=== PATIENT | female | born 1980 | race Caucasian/White ===

== ENCOUNTER 2016-11-11 10:35 | Emergency (ER) | payer OTHER ==
[2016-11-11 10:39] VITALS: BP 122/68; PULSE 88; TEMP 98.6; BMI 29.9
--- NOTE | 2016-11-11 12:19 | PDOC ---
History of Present Illness - General Chief Complaint: Sore Throat Stated Complaint: 26WKS , STREP THROAT Time Seen by Provider: 11/11/16 11:45 History Source: Patient Exam Limitations: No Limitations - History of Present Illness Initial Comments: 11/11/16 12:19 35 yr female with sore throat this am. Pt states her children had strep last week. Pt is 7 months no medical history or allergies. Past History - Past Medical History Allergies/Adverse Reactions: Allergies Allergy/AdvReac Type Severity Reaction Status Date / Time No Known Allergies Allergy Verified 11/11/16 10:36 Home Medications: Ambulatory Orders NK [No Known Home Medication] 11/11/16 Asthma: No Cancer: No Cardiac Disorders: No Diabetes: No HTN: No Seizures: No Thyroid Disease: No - Family Disease History Comment:: 11/11/16 12:20 none - Psycho/Social/Smoking Cessation Hx Anxiety: No Suicidal Ideation: No Smoking Status: No Smoking History: Never smoked Have you smoked in the past 12 months: No Number of Cigarettes Smoked Daily: 0 Information on smoking cessation initiated: No Hx Alcohol Use: No Drug/Substance Use Hx: No Substance Use Type: None Hx Substance Use Treatment: No Review of Systems - Review of Systems Able to Perform ROS?: Yes Is the patient limited Chinese proficient: No Constitutional: No: Symptoms Reported HEENTM: Yes: See HPI Respiratory: No: Symptoms reported Cardiac (ROS): No: Symptoms Reported ABD/GI: No: Symptoms Reported : No: Symptoms Reported Musculoskeletal: No: Symptoms Reported Integumentary: No: Symptoms Reported Neurological: No: Symptoms reported *Physical Exam - Vital Signs Last Vital Signs Temp Pulse Resp BP Pulse Ox 98.6 F 88 18 122/68 100 11/11/16 10:37 11/11/16 10:37 11/11/16 10:37 11/11/16 10:37 11/11/16 10:37 - Physical Exam General Appearance: Yes: Nourished, Appropriately Dressed HEENT: positive: EOMI, BRANDO, TMs Normal, Pharynx Normal Neck: positive: Supple Respiratory/Chest: positive: Lungs Clear, Normal Breath Sounds Cardiovascular: positive: Regular Rhythm, Regular Rate Gastrointestinal/Abdominal: positive: Normal Bowel Sounds, Soft Musculoskeletal: positive: Normal Inspection Extremity: positive: Normal Capillary Refill, Normal Inspection, Normal Range of Motion Integumentary: positive: Normal Color, Dry, Warm Neurologic: positive: Fully Oriented, Alert, Normal Mood/Affect, Normal Response , Motor Strength /5 Medical Decision Making - Medical Decision Making 11/11/16 12:20 cc: sore throat afebrile no diff swallowing will check for strep *DC/Admit/Observation/Transfer Diagnosis at time of Disposition: Pharyngitis Qualifiers: Pharyngitis/tonsillitis etiology: unspecified etiology Qualified Code(s): J02.9 - Acute pharyngitis, unspecified - Discharge Dispostion Disposition: HOME Condition at time of disposition: Good - Patient Instructions Additional Instructions: negative for strep throat on the rapid swab gargle with warm salt water 4-5 times a day throat lozengers lemon drops drink pleanty of fluids tylenol for pain as needed follow with ENT if any symptoms worsen or persist
== END 2016-11-11 13:44 | disposition home or self-care (01) ==
LOC: JERFT 10:35
DX: J02.9 Acute pharyngitis, unspecified (principal); Z3A.26 26 weeks gestation of pregnancy
CPT/HCPCS: 87070; 87430; 99281-25

== ENCOUNTER 2017-02-04 01:32 | Inpatient (IN) | payer OTHER ==
[2017-02-04] MEDS ORDERED: DEXTROSE 5%-LACTATED RINGERS 1,000 ML IV SCH (02:20)
[2017-02-04] MEDS ORDERED: AMPICILLIN 2 GM/100 ML BAG (PRE-DOCKED) IVPB ONE (02:20)
[2017-02-04 02:28] LABS: MCH 27.7 pg (25.7-33.7); MCHC 32.9 g/dl (32.0-36.0); MEAN CELL VOLUME 84.2 fl (80-96); RDW 14.6 % (11.6-15.6); WHITE BLOOD COUNT 8.4 K/mm3 (4.0-10.0)
[2017-02-04 02:45] VITALS: BMI 31.5
[2017-02-04 02:50] LABS: INR 0.96 (0.82-1.09); PROTHROMBIN TIME (PATIENT) 10.6 SEC (9.98-11.88)
[2017-02-04 02:53] LABS: ACTIVATED PTT 26.6 SECONDS (26.9-34.4)
[2017-02-04 02:56] LABS: CALCIUM 9.4 mg/dL (8.5-10.1); COCKROFT - GAULT 121.72; CREATININE 0.7 mg/dL (0.55-1.02)
[2017-02-04 03:24] LABS: HIV 1 & 2 AB NEGATIVE; HIV 1 AGp24 NEGATIVE
[2017-02-04] MEDS: AMPICILLIN (PRE-DOCKED) 1 GM/100 ML BAG IVPB SCH ×3 (06:20→14:20)
--- NOTE | 2017-02-04 06:47 | HP ---
Past Medical History - Primary Care Physician PCP:: Lencho London - Admission Chief Complaint: 36 yo @ 38.2wks with contructions, no VB, no LOF, +FM History of Present Illness: 1. GBS+ - for Ampicillin prophylaxis History Source: Patient Limitations to Obtaining History: No Limitations - Past Medical History ...: 5 ...Para: 4 ...Term: 4 ...: 0 ...Spon : 0 ...Induced : 0 ...Multiple Gestation: 0 ...LMP: 05/12/16 ... Weeks Gestation by Dates: 38.2 ...EDC by Dates: 02/16/17 ...EDC by Sono: 02/19/17 - Past Surgical History Past Surgical History: Yes: None Hx Myomectomy: No Hx Transabdominal Cerclage: No - Smoking History Smoking history: Never smoked Have you smoked in the past 12 months: No Aproximately how many cigarettes per day: 0 - Alcohol/Substance Use Hx Alcohol Use: No History of Substance Use: reports: None - Social History History of Recent Travel: No Home Medications - Allergies Allergies/Adverse Reactions: Allergies Allergy/AdvReac Type Severity Reaction Status Date / Time No Known Allergies Allergy Verified 02/04/17 02:50 - Home Medications Home Medications: Ambulatory Orders [id number]/Iron Fumarate/FA/Dss [ 19 Tablet] 1 each PO DAILY 02/04/17 Review of Systems - Review of Systems Constitutional: reports: No Symptoms Eyes: reports: No Symptoms HENT: reports: No Symptoms Neck: reports: No Symptoms Cardiovascular: reports: No Symptoms Respiratory: reports: No Symptoms Gastrointestinal: reports: No Symptoms Genitourinary: reports: No Symptoms Breasts: reports: No Symptoms Reported Musculoskeletal: reports: No Symptoms Integumentary: reports: No Symptoms Neurological: reports: No Symptoms Endocrine: reports: No Symptoms Hematology/Lymphatic: reports: No Symptoms Psychiatric: reports: No Symptoms Physical Exam - Maternity Vital Signs: Vital Signs Temperature 98.0 F 02/04/17 05:00 Pulse Rate 69 02/04/17 06:00 Respiratory Rate 18 02/04/17 06:00 Blood Pressure 117/86 02/04/17 06:00 O2 Sat by Pulse Oximetry (%) Constitutional: Yes: Well Nourished Cardiovascular: Yes: WNL Lungs: Clear to auscultation Breast(s): Yes: WNL - Abdominal Exam/OB Fundal Height: 37 Number of Fetuses: Single Presentation: Vertex Contractions: Yes Regularity: Regular Intensity: Mild/Mod Monitor Mode: External Heart Rate Location: Midline Category: I Accelerations: Uniform Decelerations: None - Vaginal Exam/OB Vaginal Bleediing: Bloody Show Dilatation (cm): 5 Effacement (%): 50% Amniotic Membrane Status: Intact Presentation: Vertex/Position Station: -3 - Physical Exam Musculoskeletal: Yes: WNL Extremities: Yes: WNL Edema: No Integumentary: Yes: WNL Deep Tendon Reflex Grade: Normal +2 ...Motor Strength: WNL Psychiatric: Yes: WNL - Labs Lab Results: CBC, BMP 02/04/17 02:20 02/04/17 02:20 Assessment/Plan 36 yo P4 @ 38.2 wks in labor Admit to L&D Send Labs, IVF Desires Epidural for pain control MF status reasuring Will AROM after epidural for augmentation
[2017-02-04 07:15] LABS: PLATELET COMMENT2 NO CLOTTING DETECTED; PLATELET COMMENT3 UNABLE TO ENUMERATE; PLATELET ESTIMATE ADEQUATE (NORMAL)
[2017-02-04] MEDS ORDERED: TUBERCULIN PPD 5 TU/0.1ML SYRINGE (IN PATIENT USE ONLY) ID ONE (08:00)
[2017-02-04] MEDS ORDERED: FENTANYL/BUPIVACAINE/NS/PF - PCEA - 50 ML DISP.SYRIN EP SCH (08:15)
--- NOTE | 2017-02-04 12:27 | PN ---
Ante-Partal Exam - Subjective Subjective: Pt w/o complaints Vital Signs: Vital Signs Temperature 98.1 F 02/04/17 10:00 Pulse Rate 56 L 02/04/17 10:30 Respiratory Rate 20 02/04/17 10:30 Blood Pressure 135/76 02/04/17 10:30 O2 Sat by Pulse Oximetry (%) 100 02/04/17 10:30 Bleeding: No Headache: No Visual changes: No Right upper quadrant pain: No Pain (scale 1-10): 0 (Epidural) - Contractions Contractions: Yes Regularity: Regular Intensity: Mild/Mod Monitor Mode: External - Exam during Labor Heart Rate: 110 Variability: Moderate Heart Rate Location: Midline Category: I Monitor Accelerations: Present Monitor Decelerations: Variable (occasional) Exam: Vaginal Dilatation (cm): 6 Effacement (%): 70 Amniotic Membrane Status: Intact Presentation: Vertex Station: -4 - Intrapartum Hemorrhage Risk Medium Risk Factors: None High Risk Factors: None Risk Score: 0 Risk Level: Low Risk - Assessment/Plan Assessment/Plan: 28 yo P4 with spont active labor. FHT with change in baseline but o/w Category I No cervical dilation, c/w arrest of dilation head is very high to AROM now. Contx's are not regular. Plan to augment with pitocin.
[2017-02-04 12:42] LABS: BASOPHIL 0.7 % (0-2.0); EOSINOPHIL 0.5 % (0-4.5); MCHC 33.3 g/dl (32.0-36.0); MEAN CELL VOLUME 84.1 fl (80-96); MEAN PLT VOLUME 11.3 fl (7.5-11.1); RDW 14.8 % (11.6-15.6); WHITE BLOOD COUNT 8.9 K/mm3 (4.0-10.0)
[2017-02-04] MEDS ORDERED: WITCH HAZEL 50% (TUCKS) 40 PAD/JAR PAD TP PRN (16:07)
[2017-02-04] MEDS ORDERED: BISACODYL 10 MG SUPP.RECT RC PRN (16:07)
[2017-02-04] MEDS ORDERED: METHYLERGONOVINE MALEATE 0.2 MG/1 ML AMP IM PRN (16:07)
[2017-02-04] MEDS ORDERED: BENZOCAINE 28 GM HEMORRHOIDAL OINTMENT TP PRN (16:07)
[2017-02-04] MEDS ORDERED: BENZOCAINE 20% 57 GM BOTTLE TP PRN (16:07)
[2017-02-04] MEDS ORDERED: D5W-LR W/ 20 UNITS OXYTOCIN 1,000 ML IV SCH (16:15)
[2017-02-04 16:18] LABS: ARTERIAL BLD GAS O2 SATURATION 82.6 % (90-98.9); ARTERIAL BLOOD GAS BASE EXCESS -3.8 meq/l (-2-2); ARTERIAL BLOOD GAS HCO3 19.9 meq/L (22-26); ARTERIAL BLOOD GAS pH 7.38 (7.35-7.45); LPM/O2% 6L; PT. ON O2? YES
[2017-02-04 16:19] LABS: ARTERIAL BLOOD GAS PO2 42.6 mmHg (80-100); TYPE OF O2 FACE MASK
[2017-02-04 17:23] LABS: PLATELET COMMENT2 NO CLUMPING NOTED; PLATELET COMMENT3 NO CLOTTING DETECTED; PLATELET COUNT 113 K/MM3 (134-434); PLATELET ESTIMATE DECREASED (NORMAL)
[2017-02-04] MEDS: ACETAMINOPHEN 325 MG TABLET (FP) PO PRN ×2 (17:47→20:49)
--- NOTE | 2017-02-04 18:14 | PN ---
Delivery - Delivery Vaginal Delivery: No Problems, Spontaneous Type of Anesthesia: Epidural Episiotomy/Laceration: None EBL (cc): 300 Delivery, Single - Stages of Labor Date 1st Stage Initiatied: 02/04/17 Time 1st Stage Initiated: 02:00 Date 2nd Stage Initiated: 02/04/17 Time 2nd Stage Initiated: 15:30 Date of Delivery: 02/04/17 Time of Delivery: 15:47 Date Placenta Delivered: 02/04/17 Time Placenta Delivered: 16:00 Placenta: Yes: Spontaneous, Normal Configuration - Condition of Infant Structural Engineering Drafting Officer/Lineman Apprentice Present: Yes Name: Imani Brandon Infant Gender: Female Weight: 3.175 kg Position: Left, OA Total Hours ROM (Hrs/Mins): 2hr 7min - 1 Minute Total Score: 9 5 Minutes Total Score: 9 - [place] Feeding Plan Initial Plan: Elected not to breastfeed exclusively throughout hospitalization Remarks - Remarks Remarks: Normal delivery. Mother and baby are well.
[2017-02-04] MEDS: IBUPROFEN 600 MG TABLET (FP) PO PRN (20:50)
[2017-02-05] MEDS: ACETAMINOPHEN 325 MG TABLET (FP) PO PRN ×4 (00:23→21:30)
[2017-02-05] MEDS: IBUPROFEN 600 MG TABLET (FP) PO PRN ×4 (00:24→21:29)
[2017-02-05] MEDS ORDERED: SIMETHICONE 80 MG TAB.CHEW (FP) PO ONE (06:00)
[2017-02-05 08:55] LABS: BASOPHIL 0.5 % (0-2.0); EOSINOPHIL 1.1 % (0-4.5); MCH 27.8 pg (25.7-33.7); MCHC 32.9 g/dl (32.0-36.0); MEAN CELL VOLUME 84.5 fl (80-96); NEUTROPHILS 72.6 % (42.8-82.8); PLATELET COUNT 105 K/MM3 (134-434); RDW 15.3 % (11.6-15.6); WHITE BLOOD COUNT 11.8 K/mm3 (4.0-10.0)
[2017-02-05] MEDS ORDERED: DIPHTH,PERTUSS(ACELL),TET 0.5 ML DISP.SYRIN IM ONE (10:00)
[2017-02-05] MEDS: SENNOSIDES/DOCUSATE COMBO (SENNA PLUS) TABLET (UD) PO PRN (10:02)
[2017-02-05] MEDS: PRENATAL VITAMINS W/ FOLIC ACID TABLET (FP) PO SCH (10:05)
[2017-02-06] MEDS: IBUPROFEN 600 MG TABLET (FP) PO PRN (08:07)
[2017-02-06] MEDS: ACETAMINOPHEN 325 MG TABLET (FP) PO PRN (08:08)
[2017-02-06] MEDS: SENNOSIDES/DOCUSATE COMBO (SENNA PLUS) TABLET (UD) PO PRN (08:09)
[2017-02-06 09:09] VITALS: BP 125/76; PULSE 71; TEMP 98.6
--- NOTE | 2017-02-06 09:27 | PN ---
Post Progress Note - Subjective Subjective: Patient without acute complaints. Reports tolerating oral intake without nausea or vomiting. Ambulating without dizziness. Denies fevers or chills. Pain well controlled with oral pain medication. Bottlefeeding Passing flatus. Post Day: 2 Type of Delivery: Vital Signs: Vital Signs Temperature 98.6 F 02/06/17 09:06 Pulse Rate 71 02/06/17 09:06 Respiratory Rate 17 02/06/17 09:06 Blood Pressure 125/76 02/06/17 09:06 O2 Sat by Pulse Oximetry (%) 100 02/04/17 15:30 Breast Exam: Yes: Engorged Uterus: Yes: Fundus Firm, Fundus below umbilicus Abdomen/GI: Yes: Abdomen soft, Passing flatus, Tolerating PO. No: Tender Lochia: Yes: Serosa Lochia, amount: Small Extremities: Yes: Calves non-tender Activity: Ambulating - Labs Labs: CBC WBC 11.8 K/mm3 (4.0-10.0) H D 02/05/17 08:00 RBC 3.82 M/mm3 (3.60-5.2) 02/05/17 08:00 Hgb 10.6 GM/dL (10.7-15.3) L 02/05/17 08:00 Hct 32.3 % (32.4-45.2) L 02/05/17 08:00 MCV 84.5 fl (80-96) 02/05/17 08:00 MCHC 32.9 g/dl (32.0-36.0) 02/05/17 08:00 RDW 15.3 % (11.6-15.6) 02/05/17 08:00 Plt Count 105 K/MM3 (134-434) L 02/05/17 08:00 MPV 11.0 fl (7.5-11.1) 02/05/17 08:00 Neutrophils % 72.6 % (42.8-82.8) 02/05/17 08:00 Lymphocytes % 20.9 % (8-40) 02/05/17 08:00 Monocytes % 4.9 % (3.8-10.2) 02/05/17 08:00 Eosinophils % 1.1 % (0-4.5) D 02/05/17 08:00 Basophils % 0.5 % (0-2.0) 02/05/17 08:00 Platelet Estimate Decreased (NORMAL) 02/04/17 12:25 Platelet Comment Mod large plts 02/04/17 12:25 Platelet Comment No clumping noted 02/04/17 12:25 Assessment/Plan 36 yo PPD # 2 s/p , afebrile, vital signs stable, doing well 1. Patient stable for discharge home today. 2. Patient encouraged to contact MD for: - Severe pain not controlled by oral pain medication - Fevers or chills - Nausea or vomiting, intolerance of oral intake 3. Patient to follow up in office in 4-6 weeks for visit
[2017-02-06] MEDS: PRENATAL VITAMINS W/ FOLIC ACID TABLET (FP) PO SCH (10:21)
== END 2017-02-06 12:09 | disposition home or self-care (01) | DRG 560 ==
LOC: JDEL 01:32 → JLDR 02:00 → J3W 17:43
PROVIDERS: ADMIT Obstetrics & Gynecology; ATTEND Obstetrics & Gynecology
PROC: 10E0XZZ Delivery of Products of Conception, External Approach (ICD-10-PCS; principal; 2017-02-04)
DX: O99.824 Streptococcus B carrier state complicating childbirth (principal); O99.214 Obesity complicating childbirth; E66.8 Other obesity; Z68.31 Body mass index [BMI] 31.0-31.9, adult; Z3A.38 38 weeks gestation of pregnancy; Z37.0 Single live birth
CPT/HCPCS: 36415; 36600; 59409; 80048; 82803; 85025; 85610; 85730; 86593; 86850; 86900; 86901; 87389; 90715

== ENCOUNTER 2018-01-12 05:13 | Day surgery (SDC) | payer OTHER ==
[2018-01-08 15:45] VITALS: BMI 31.1
[2018-01-12] MEDS ORDERED: MIDAZOLAM HCL 2 MG/2 ML SINGLE DOSE VIAL ONE (09:09)
--- NOTE | 2018-01-12 09:19 | HP ---
Past Medical History - Primary Care Physician PCP:: Lencho London - Admission Chief Complaint: 37yo P5 admitted for surgical sterilization. The pt prefers laparoscopic bilateral salpingectomy. History of Present Illness: Sterilization History Source: Patient, Medical Record Limitations to Obtaining History: No Limitations - Past Medical History CLINIC PHYSICIAN: No: Alzheimer's, CVA, Dementia, Migraine, Multiple Sclerosis, Peripheral Neuropathy, Parkinson's, Seizure, Syncope, TIA, Vertigo, Other Cardiovascular: No: AFIB, Aneurysm, Aortic Insufficiency, Aortic Stenosis, CAD, CHF, Deep Vein Thrombosis, HTN, Hyperlipdemia, NV, Mitral Insufficiency, Mitral Stenosis, Murmur, Pulmonary Hypertension, Other Pulmonary: No: Asthma, Bronchitis, Cancer, COPD, O2 Dependent, Pneumonia, Previously Intubated, Pulmonary Embolus, Pulmonary Fibrosis, Sleep Apnea, Other Gastrointestinal: No: Ascites, Cancer, Constipation, Crohn's Disease, Diverticulitis, Diverticulosis, Esophageal Varices, Gastritis, GERD, GI Bleed, Hemorrhoids, Hiatal Hernia, Inflamatory Bowel Disease, Irritable Bowel Disease, Pancreatitis, Peptic Ulcer Disease, Ulcerative Colitis, Other Hepatobiliary: No: Cirrhosis, Cholelithiasis, Cholecystitis, Choledocholithiasis , Hepatitis A, Hepatitis B, Hepatitis C, Other Renal/: No: Renal Failure, Renal Inusuff, BPH, Cancer, Hematuria, Hemodialysis , Neurogenic Bladder, Renal Calculi, UTI, Other Reproductive: No: Ectopic , Endometriosis, Fibroids, PID, Polycystic Ovary Syndrome, Postmenopausal, Other ...Para: 5 Heme/Onc: No: Anemia, B12 Deficiency, Bleeding Disorder, Cancer, Current Chemotherapy, Current Radiation Therapy, Hemochromatosis, Hypercoaguable State, Myeloproliferative Synd, Sickle Cell Disease, Sickle Cell Trait, Thrombocytopenia, Other Infectious Disease: No: AIDS, C-Diff, Herpes Zoster, HIV, MRSA, STD's, Tuberculosis, VREF, Other Psych: No: Addictions, Anxiety, Bipolar, Depression, Panic, Psychosis, Schizophrenia, Other Musculoskeletal: No: Bursitis, Chronic low back pain, Hemiparesis, Hemiplegia, Osteoarthritis, Paraplegia, Other Rheumatology: No: Fibromyalgia, Gout, Lupus, Rheumatoid Arthritis, Sarcoidosis, Vasculitis, Other ENT: No: Allergic Rhinitis, Sinusitis, Other Endocrine: No: Claiborne's Disease, Floridalma's Disease, Diabetes Insipidus, Diabetes Mellitus, Hyperparathyroidism, Hyperthyroidism, Hypothyroidism, Osteopenia, SIADH, Other - Past Surgical History Past Surgical History: Yes: None Hx Myomectomy: No Hx Transabdominal Cerclage: No - Smoking History Smoking history: Never smoked Have you smoked in the past 12 months: No Aproximately how many cigarettes per day: 0 - Alcohol/Substance Use Hx Alcohol Use: No History of Substance Use: reports: None - Social History Usual Living Arrangement: Yes: With Spouse, With Child ADL: Independent History of Recent Travel: No Home Medications - Allergies Allergies/Adverse Reactions: Allergies Allergy/AdvReac Type Severity Reaction Status Date / Time No Known Allergies Allergy Verified 01/12/18 07:33 - Home Medications Home Medications: Ambulatory Orders NK [No Known Home Medication] 01/08/18 Family Disease History - Family Disease History Family Disease History: Diabetes: Father, Mother Review of Systems Findings/Remarks: Well Appearing - Review of Systems Constitutional: reports: No Symptoms Eyes: reports: No Symptoms HENT: reports: No Symptoms Neck: reports: No Symptoms Cardiovascular: reports: No Symptoms Respiratory: reports: No Symptoms Gastrointestinal: reports: No Symptoms Genitourinary: reports: No Symptoms Breasts: reports: No Symptoms Reported Musculoskeletal: reports: No Symptoms Integumentary: reports: No Symptoms Neurological: reports: No Symptoms Endocrine: reports: No Symptoms Hematology/Lymphatic: reports: No Symptoms Psychiatric: reports: No Symptoms Pain Intensity: 0 Physical Exam-PARTS IDENTIFICATION TECHNICIAN Vital Signs: Vital Signs Temperature 98.2 F 01/12/18 07:23 Pulse Rate 68 01/12/18 07:23 Respiratory Rate 16 01/12/18 07:23 Blood Pressure 129/78 01/12/18 07:23 O2 Sat by Pulse Oximetry (%) 100 01/12/18 07:23 Constitutional: Yes: Well Nourished, No Distress, Calm Eyes: Yes: WNL, Conjunctiva Clear, EOM Intact HENT: Yes: WNL, Atraumatic, Normocephalic Neck: Yes: WNL, Supple, Trachea Midline Cardiovascular: Yes: WNL, Regular Rate and Rhythm Respiratory: Yes: WNL, Regular, CTA Bilaterally Gastrointestinal: Yes: WNL, Normal Bowel Sounds, Soft ...Rectal Exam: Yes: Deferred Renal/: Yes: WNL Pelvis: Yes: WNL External Genitalia: Yes: Normal Internal Exam Deferred: No Vaginal Exam: Yes: Normal Cervix: Yes: Normal Uterus: Yes: Normal Adnexa: Normal: Left, Right Breast(s): Yes: WNL Musculoskeletal: Yes: WNL Extremities: Yes: WNL Edema: No Integumentary: Yes: WNL Neurological: Yes: WNL, Alert, Oriented ...Motor Strength: WNL Psychiatric: Yes: WNL, Alert, Oriented Assessment/Plan 37yo P5 admitted for surgical sterilization. The pt prefers laparoscopic bilateral salpingectomy. We had discussed the risks, benefits, alternatives of surgery at length including but not limited to infection, bleeding, scarring, perforation, amenorrhea, infertility, hysterectomy, injury to surrounding/ underlying organs or structure, need for additional surgery to repair/treat any complications, etc. The patient verbalized understanding and requested to proceed with surgery. I emphasized that all surgeries have risks and no guarantees can be provided.
[2018-01-12] MEDS ORDERED: DEXAMETHASONE SOD PHOSPHATE 4 MG/1 ML VIAL ONE (09:22)
[2018-01-12] MEDS ORDERED: PROPOFOL 20 ML ONE (09:25)
[2018-01-12] MEDS ORDERED: LIDOCAINE HCL/PF 2% SDV 5ML VIAL ONE (09:25)
[2018-01-12] MEDS ORDERED: ROCURONIUM BROMIDE 50 MG/5 ML VIAL ONE (09:26)
[2018-01-12] MEDS ORDERED: oxyCODONE HCL 5 MG TABLET PO PRN (09:58)
[2018-01-12] MEDS ORDERED: ONDANSETRON 4 MG/2 ML VIAL IVPUSH PRN (09:58)
[2018-01-12] MEDS ORDERED: BUPIVACAINE HCL/PF 0.5% (5MG/ML) 10 ML VIAL ONE (09:59)
[2018-01-12] MEDS ORDERED: LACTATED RINGERS SOLUTION 1,000 ML IV SCH (10:00)
[2018-01-12] MEDS ORDERED: GLYCOPYRROLATE 0.2 MG/1 ML VIAL ONE (10:00)
[2018-01-12] MEDS ORDERED: NEOSTIGMINE METHYLSULFATE 0.5 MG/ML - 10 ML MDV ONE (10:00)
[2018-01-12] MEDS ORDERED: BUPIVACAINE HCL/PF 0.5% (5MG/ML) 10 ML VIAL IJ ONE (10:10)
--- NOTE | 2018-01-12 10:37 | OP ---
Operative Note - Note: Operative Date: 01/12/18 Pre-Operative Diagnosis: Sterilization Operation: Laparoscopic salpingectomy Findings: Normal uterus, tubes, bowel, liver, GB Post-Operative Diagnosis: Same as Pre-op Surgeon: Lencho London Testing Director: Bing Ayala Anesthesiologist/STEREO EQUIPMENT REPAIRER: Axel Bustamante Anesthesia: Spinal Specimens Removed: Bilateral Fallopian tubes Estimated Blood Loss (mls): 5 Drains, Volume Out (mls): 300 Blood Volume Replaced (mls): 0 Fluid Volume Replaced (mls): 800 Operative Report Dictated: Yes
[2018-01-12] MEDS ORDERED: ONDANSETRON 4 MG/2 ML VIAL ONE (10:53)
--- NOTE | 2018-01-12 11:43 | OP ---
DATE OF OPERATION: 01/12/2018 PREOPERATIVE DIAGNOSIS: Sterilization. POSTOPERATIVE DIAGNOSIS: Sterilization. PROCEDURE: Laparoscopic salpingectomy bilateral. SURGEON: Tiffanie London MD JAIL KEEPER: Bing Ayala MD ANESTHESIA: General endotracheal. ANESTHESIOLOGIST: Axel Bustamante MD IV FLUIDS: 800 mL. URINE OUTPUT: 300 mL of clear urine at the end of the procedure. ESTIMATED BLOOD LOSS: 5 mL. PATHOLOGY: Fallopian tubes bilateral. COMPLICATIONS: None. DESCRIPTION OF PROCEDURE: The patient was met preoperatively. Risks, benefits, and alternatives of surgery were discussed in detail. All questions were answered. The patient was then explained the surgery, risks, benefits, and alternatives. The patient verbalized her understanding and agreed to procedure with the surgery. She was brought to the OR room with the IV running. The patient was placed on the OR table in a supine position. The general endotracheal anesthesia was achieved without difficulty. The patient was then placed in a dorsal lithotomy position using adjustable Richard stirrups. She was examined under anesthesia. The examination showed a small, anteverted uterus with no pelvic or adnexal masses. The patient was then prepped and draped in the usual sterile fashion. A time-out procedure was conducted as per standard protocol. A Morales catheter was then inserted and left to drain to gravity. A uterine manipulation was placed inside the uterus without complications. The surgeons then regloved and proceeded with the laparoscopy. A 5-mm umbilical incision was made with a knife. An Optiview trocar was placed through the umbilical incision under direct visualization. A pneumoperitoneum was then produced with the CO2 gas and intra-abdominal pressure limited to 15 mmHg. Survey of the abdominal and peritoneal cavity showed a normal uterus, fallopian tubes, and ovaries as well as a normal liver, gallbladder, and bowel. A 5-mm incision was then made in the left lower quadrant, and a 5-mm trocar was placed under direct visualization. Another 5-mm incision was made in the right lower quadrant, and a 5-mm trocar was inserted through that incision under direct visualization. A LigaSure device was then used to excise both fallopian tubes with good hemostasis. Both fallopian tubes were removed and sent to Pathology for evaluation. The operative site was examined, and excellent hemostasis was noted. At that point, all of the instruments were removed from the patient's abdomen. The pneumoperitoneum was reduced. The incisions were closed using a 4-0 Biosyn suture. Sponge, lap, and instrument counts were correct. The patient was transferred to the recovery room awake and in stable condition. TIFFANIE LONDON M.D. [facility]/[id number]
[2018-01-12 12:19] VITALS: TEMP 97.9
[2018-01-12 14:53] VITALS: BP 121/75; PULSE 67
--- NOTE | 2018-01-13 17:09 | PATH ---
Surgical Pathology Report Patient Name: DIVINA GOULD Med. Rec. #: [id number] /Age/Gender: 1980 (Age: 37) / F Account: [id number] Location: [facility] SURGICAL Taken: 01/12/2018 Received: 01/12/2018 Reported: 01/13/2018 Physicians: Lencho London M.D. Specimen(s) Received BILATERAL FALLOPIAN TUBES Clinical History Voluntary sterilization Final Diagnosis BILATERAL FALLOPIAN TUBES, RESECTION: COMPLETE CROSS SECTIONS OF BILATERAL FALLOPIAN TUBES IDENTIFIED. BILATERAL FIMBRIAE WITH NO DIAGNOSTIC ABNORMALITIES. Electronically Signed Edinson Courtney M.D. Gross Description Received in formalin labeled "bilateral fallopian tubes," are 2 undesignated, fimbriated portions of fallopian tube measuring 4.0 and 6.0 cm in length. The outer surfaces are pacheco-pink with fibrous adhesions. Sectioning reveals an unremarkable lumen. Surgical Technology Instructor sections are submitted 4 cassettes as follows: 1- shorter fallopian tube fimbria; 2-cross sections of shorter fallopian tube; 3-longer fallopian tube fimbria; 4-cross sections of longer fallopian tube. /01/12/2018 [place]01/12/2018
== END 2018-01-12 14:40 | disposition home or self-care (01) ==
LOC: JASU-SURG 05:13
PROVIDERS: ATTEND Obstetrics & Gynecology
PROC: 0UB74ZZ Excision of Bilateral Fallopian Tubes, Percutaneous Endoscopic Approach (ICD-10-PCS; principal; 2018-01-12 09:00)
DX: Z30.2 Encounter for sterilization (principal)
CPT/HCPCS: 84703; 88302-TC; 94760

== ENCOUNTER 2020-08-07 04:53 | Day surgery (SDC) | payer OTHER ==
[2020-08-01 15:37] VITALS: BMI 29.5
[~2020-08-07 04:53] MED LIST: ceFAZolin SODIUM 1 GM VIAL IVPB ONE
[2020-08-07 12:28] LABS: INR 1.09 (0.83-1.09); PROTHROMBIN TIME (PATIENT) 13.1 SEC (9.7-13.0)
[2020-08-07 12:30] LABS: ACTIVATED PTT 29.7 SECONDS (25.2-36.5)
[2020-08-07] MEDS ORDERED: PROPOFOL 20 ML ONE (14:01)
[2020-08-07] MEDS ORDERED: MIDAZOLAM HCL 2 MG/2 ML SINGLE DOSE VIAL ONE (14:01)
[2020-08-07] MEDS ORDERED: oxyCODONE HCL 5 MG TABLET PO PRN (14:28)
[2020-08-07] MEDS ORDERED: ONDANSETRON 4 MG/2 ML VIAL IVPUSH PRN (14:28)
[2020-08-07] MEDS ORDERED: LACTATED RINGERS SOLUTION 1,000 ML IV SCH (14:30)
[2020-08-07] MEDS ORDERED: ceFAZolin SODIUM 1 GM VIAL IVPB ONE (14:40)
[2020-08-07] MEDS ORDERED: KETOROLAC TROMETHAMINE 30 MG/1 ML VIAL ONE (15:02)
[2020-08-07] MEDS ORDERED: DEXAMETHASONE SOD PHOSPHATE 4 MG/1 ML VIAL ONE (15:02)
[2020-08-07] MEDS ORDERED: ceFAZolin SODIUM 1 GM VIAL ONE (15:02)
[2020-08-07 17:22] VITALS: BP 148/90; PULSE 63; TEMP 96.8
== END 2020-08-07 17:45 | disposition home or self-care (01) ==
LOC: JASU-SURG 04:53
PROVIDERS: ATTEND Obstetrics & Gynecology
PROC: 0UB98ZZ Excision of Uterus, Via Natural or Artificial Opening Endoscopic (ICD-10-PCS; principal; 2020-08-07 14:00)
PROC: 0UDB7ZX Extraction of Endometrium, Via Natural or Artificial Opening, Diagnostic (ICD-10-PCS; 2020-08-07 14:00)
PROC: 0UJD8ZZ Inspection of Uterus and Cervix, Via Natural or Artificial Opening Endoscopic (ICD-10-PCS; 2020-08-07 14:00)
DX: D25.0 Submucous leiomyoma of uterus (principal); N92.0 Excessive and frequent menstruation with regular cycle; D64.9 Anemia, unspecified; Z80.49 Family history of malignant neoplasm of other genital organs
CPT/HCPCS: 36415; 84703; 85610; 85730; 86850; 86900; 86901; 88305-TC; 94760